=== PATIENT | female | born 1975 | race Two or more races ===

== ENCOUNTER 2016-04-26 17:26 | Emergency (ER) | payer MEDICARE, MEDICAID ==
[2016-04-26 18:45] VITALS: TEMP 97.7
[2016-04-26 18:46] VITALS: BMI 41.4
[2016-04-26] MEDS ORDERED: ACETAMINOPHEN 325 MG/TAB TABLET PO ONE (19:11)
[2016-04-26] MEDS ORDERED: TRAMADOL HCL 50 MG TAB PO ONE (19:11)
[2016-04-26] MEDS ORDERED: DIPHENHYDRAMINE 25 MG CAP PO ONE (19:12)
[2016-04-26] MEDS ORDERED: ONDANSETRON HCL 4 MG ODT TAB PO ONE (19:12)
--- NOTE | 2016-04-26 20:20 | EDPRACDOC ---
- General Information Chief Complaint: Headache Stated Complaint: MIGRAINE TROY Time Seen by Provider: 04/26/16 18:47 Information Source: Patient Mode Of Arrival: Car Home Medications: Home Medications Levothyroxine Sodium [Synthroid] 400 mcg PO DAILY 09/01/13 Montelukast Sodium [Singulair] 10 mg PO HS 09/01/13 Metformin HCl 1,000 mg PO DAILY 10/26/13 Trazodone HCl 225 mg PO HS 11/24/13 Bupropion HCl [Wellbutrin Sr] 200 mg PO BID 04/09/14 Alprazolam [Xanax] 1 mg PO DAILY PRN 06/12/14 Insulin Aspart [Novolog] 25 units SQ BID 11/06/14 Dexlansoprazole [Dexilant] 60 mg PO DAILY 01/12/15 Lurasidone HCl [Latuda] 20 mg PO DAILY 02/15/15 Dicyclomine HCl [Bentyl] 10 mg PO TID PRN 12/23/15 Oxycodone HCl/Acetaminophen [Percocet 10-325 mg Tablet] 1 tab PO TID PRN Oxycodone HCl/Acetaminophen [Percocet 5-325 mg Tablet] 1 - 2 tab PO Q4H PRN #30 tab 12/23/15 Phentermine HCl [Adipex-P] 37.5 mg PO DAILY 12/23/15 Promethazine [Phenergan] 25 mg PO Q8H PRN #30 tab 12/23/15 Allergies/Adverse Reactions: Allergies Allergy/AdvReac Type Severity Reaction Status Date / Time erythromycin base Allergy Intermediate Nausea/Vomi Verified 04/26/16 19:13 [Erythromycin Base] ting ibuprofen [From Motrin] Allergy Intermediate Bleeding Verified 04/26/16 19:13 ketorolac tromethamine Allergy Intermediate Nausea/Vomi Verified 04/26/16 19:13 [From Toradol] ting Sulfa (Sulfonamide AdvReac Severe Anaphylaxis Verified 04/26/16 19:13 Antibiotics) * MUSHROOMS Allergy Severe Anaphylaxis Uncoded 04/26/16 19:13 * - History of Present Illness Onset: 2 days HPI: PT PRESENTS TODAY WITH AOC MIGRAINE. PT LYING IN THE DARK ON HER CELL PHONE. NO DISTRESS. NO NEW COMPLAINTS. HAS TAKEN INTRANASAL/INTRAMUSCULAR INJECTIONS OF IMITREX W/OUT RELIEF. 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 Denies: Substance Use Disorder Systemic History: Reports: Diabetes, Hypothyroidism. Denies: Cancer, Anemia Additional Past Medical History: GOUT Surgical History: Reports: Cholecystectomy, Hysterectomy, Tonsillectomy/ Adnoidectomy, Other (Lithotripsy. Severe right ankle fracture, surgery.) - Family Medical History Reports: Hypertension (Father), Diabetes (Grandmother), Cancer (Grandmother, Grandfather). Denies: Stroke, Cardiac Disorders - Social Medical History Smoking Status: Heavy tobacco smoker (5 or more cigarettes/day or daily pipe/ cigar) Social History: Denies: Substance Use Disorder EDM Review of Systems - Review of Systems ROS Negative Except as Marked: Yes All systems reviewed and were negative except as marked Constitutional: No Symptoms Reported Eyes: Photophobia Ears: No Symptoms Reported Throat: No Symptoms Reported Nose: No Symptoms Reported Respiratory: No Symptoms Reported Cardiovascular: No Symptoms Reported Gastrointestinal: No Symptoms Reported Neurological: Headache Musculoskeletal: No Symptoms Reported Integumentary: No Symptoms Reported - Physical Exam Constitutional: Alert (Awake), No apparent distress Oriented to: Time, Person, Place Last recorded Vital Signs: Last Vital Signs Temp 97.7 F 04/26/16 18:45 Pulse 102 04/26/16 18:45 Resp 18 04/26/16 18:45 BP 132/84 04/26/16 18:45 Pulse Ox 95 04/26/16 18:45 Oxygen Pulse Oxygen Saturation 95 O2 Device Oxygen Flow Rate Fraction of Inspired Oxygen ( FIO2) - HEENT Head: Normal Eye Exam: Other (DEFERRED PER PT) Oropharynx: Normal Tympanic Membrane: Normal ENT EAC: Normal Nose: No Symptoms Reported Neck: Normal, Denies Pain, Midline - Respiratory/Cardiovascular Respiratory: Normal - CTA Cardiovascular: Normal - GI Palpation: Normal Tenderness: Non tender - Musculoskeletal Back: Normal Extremities: Normal - Integumentary Skin: Normal Lymphatics: Normal - Neurologic Cerebellar: Normal Mood Description: Normal Thought: Coherent Perception: Normal - Additional Information PT NOT HAPPY ABOUT NOT RECEIVING DILAUDID. I EXPLAIN TO PT THIS IS NO LONGER INDICATED FOR CHRONIC MIGRAINE TREATMENT. SHE STATES SHE'D LIKE TO SPEAK TO ANOTHER DOCTOR AND I INFORMED HER THAT I WAS AWARE THAT SHE WOULD LIKELY ASK THIS, AND I'VE ALREADY SPOKEN WITH DR. MORSE, WHO AGREES WITH MY PLAN. PT VERY UNHAPPY. PT HAS PERCOCET 10 THAT SHE CAN TAKE AT HOME. Decision Time to Discharge: 20:18 - Departure Disposition: Home Condition: Good Final Diagnosis: Migraine, Drug-seeking behavior Instructions: Migraine Headache (ED) Education/Counseling Given To: Patient Education/Counseling Given Regarding: Diagnosis, Treatment, Follow Up Referrals: Nathan Grande MD [Primary Care Provider] - One Week Additional Instructions: THE ED WILL NO LONGER GIVE NARCOTICS FOR CHRONIC MIGRAINES. YOU NEED TO TAKE YOUR NARCOTICS PRESCRIBED AT HOME.
[2016-04-26 21:15] VITALS: BP 126/71; PULSE 94
== END 2016-04-26 20:31 | disposition home or self-care (01) ==
LOC: EDMC 17:26
DX: G43.909 Migraine, unspecified, not intractable, without status migrainosus (principal); Z76.5 Malingerer [conscious simulation]; I10 Essential (primary) hypertension; E11.9 Type 2 diabetes mellitus without complications; E78.00 Pure hypercholesterolemia, unspecified; E03.9 Hypothyroidism, unspecified; K21.9 Gastro-esophageal reflux disease without esophagitis; J44.9 Chronic obstructive pulmonary disease, unspecified; J45.909 Unspecified asthma, uncomplicated; F17.200 Nicotine dependence, unspecified, uncomplicated; Z79.899 Other long term (current) drug therapy; Z79.4 Long term (current) use of insulin
CPT/HCPCS: 99283; A9270; J3490